=== PATIENT | female | born 1985 | race Caucasian/White ===

== ENCOUNTER 2018-10-13 15:15 | Emergency (ER) | payer BC, OTHER ==
[2018-10-13] MEDS: ACETAMINOPHEN 500 MG TAB PO (16:04)
== END 2018-10-13 17:40 | disposition home or self-care (01) ==
LOC: FTE 15:15
DX: S93.402A Sprain of unspecified ligament of left ankle, initial encounter (principal); X50.1XXA Overexertion from prolonged static or awkward postures, initial encounter; Y92.9 Unspecified place or not applicable
CPT/HCPCS: 29515; 73610; 73630-LT; 99283-25